=== PATIENT | female | born 1940 | race American Indian/Alaskan Native ===

== ENCOUNTER 2017-07-06 08:55 | Day surgery (SDC) | payer MEDICARE ==
[2017-06-28 14:10] VITALS: BMI 34.0
[2017-07-06] MEDS ORDERED: Sodium Chloride 0.9% 1,000 ML IV SCH (09:30)
[2017-07-06] MEDS ORDERED: Propofol 10 mg/ml Inj (20 ML) ONE (10:17)
[2017-07-06 12:15] VITALS: O2SAT 98
[2017-07-06 13:59] VITALS: BP 128/71; PULSE 66; RESP 19; TEMP 98.4
== END 2017-07-06 13:19 | disposition home or self-care (01) ==
LOC: ENDO 08:55
PROVIDERS: ATTEND Internal Medicine Gastroenterology
DX: Z12.11 Encounter for screening for malignant neoplasm of colon (principal); K63.5 Polyp of colon; K57.30 Diverticulosis of large intestine without perforation or abscess without bleeding; K64.8 Other hemorrhoids; I10 Essential (primary) hypertension; E11.9 Type 2 diabetes mellitus without complications; Z80.9 Family history of malignant neoplasm, unspecified; Z79.84 Long term (current) use of oral hypoglycemic drugs
CPT/HCPCS: 45381; 45385; 82948; 88305; J2001; J2704; J7040 ×2

== ENCOUNTER 2018-10-12 09:08 | Inpatient (IN) | payer MEDICARE ==
[2018-10-12 09:09] VITALS: BMI 34.0
--- NOTE | 2018-10-12 09:59 | ED PDOC ---
Arrival/HPI - General Chief Complaint: Abdominal Pain Time Seen by Provider: 10/12/18 09:49 Historian: Patient - History of Present Illness Narrative History of Present Illness (Text): 10/12/18 09:55 A 78 year old female, whose past medical history includes hypertension and diabetes, presents to the emergency department complaining of right flank pain since 2 days ago. Patient describes pain as mild pain. Patient denies any fever, chills, shortness of breath, nausea, vomiting, change in urinary frequency, or any other complaints. Time/Duration: Other (2 days) Symptom Onset: Gradual Symptom Course: Unchanged Activities at Onset: Light Context: Home Past Medical History - Provider Review Nursing Documentation Reviewed: Yes - Cardiac Hx Hypertension: Yes Hx Pacemaker: No - Neurological Hx Paralysis: No - Endocrine/Metabolic Hx Diabetes Mellitus Type 2: Yes - Hematological/Oncological Hx Blood Transfusions: Yes (MANY YRS AGO) - Musculoskeletal/Rheumatological Hx Falls: No - Psychiatric Hx Emotional Abuse: No Hx Physical Abuse: No Hx Substance Use: No - Anesthesia Hx Anesthesia Reactions: No - Suicidal Assessment Feels Threatened In Home Enviroment: No Family/Social History - Physician Review Nursing Documentation Reviewed: Yes Family/Social History: No Known Family HX Smoking Status: Never Smoked Hx Alcohol Use: No Hx Substance Use: No Hx Substance Use Treatment: No Allergies/Home Meds Allergies/Adverse Reactions: Allergies Penicillins Allergy (Verified 10/12/18 09:20) RASH Home Medications: Home Meds Medication Instructions Recorded Confirmed Enalapril Maleate [Vasotec] 10 mg PO DAILY 06/29/17 10/12/18 Glipizide [Glipizide ER] 2.5 mg PO DAILY 06/29/17 10/12/18 hydroCHLOROthiazide [Hydrodiuril] 25 mg PO DAILY 06/29/17 10/12/18 Review of Systems - Physician Review All systems were reviewed & negative as marked: Yes - Review of Systems Constitutional: absent: Fevers Respiratory: absent: SOB Physical Exam - Physical Exam Narrative Physical Exam (Text): 10/12/18 09:59 Constitutional: No acute distress. Head: Normocephalic. Atraumatic. Eyes: PERRL. ENT: Moist mucous membranes. Neck: Supple. Cardiovascular: Regular rate. Chest: No tenderness. Respiratory: Clear to auscultation bilaterally. GI: Soft. Nontender. Nondistended. Back: Focal area of tenderness to right flank. Musculoskeletal: No tenderness or swelling of extremities. Skin: No rash. Neurologic: Alert, no focal deficit. Vital Signs Reviewed: Yes Vital Signs Temp Pulse Resp BP Pulse Ox 10/12/18 09:18 98.5 F 94 H 18 126/74 97 Temperature: Afebrile Blood Pressure: Normal Pulse: Regular Respiratory Rate: Normal Appearance: Positive for: Well-Appearing, Non-Toxic Medical Decision Making ED Course and Treatment: 10/12/18 09:57 Impression: 78 year old female with right flank pain. Plan: -- CT of abdomen and pelvis -- Labs -- CBC -- Urine culture -- Urinalysis -- Reassess and disposition Prior Visits: Notes and results from previous visits were reviewed. Progress Notes: 10/12/18 12:54 Procedure: CT of Abdomen and Pelvis without contrast Impression: Enlarged mesenteric, periportal/nathan hepatis, adenopathy measuring up to 2 cm in short axis. Indeterminate 1.7 cm heterogeneous left adrenal gland mass. Recommend dedicated cross-sectional imaging for further characterization. 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 Correlate clinically. 2.1 x 3.0 cm ovoid soft tissue in the left upper quadrant favored to represent large splenule, however not clearly distinct from the pancreatic tail. Recommend comparison with prior outside imaging if available. Otherwise, this may be further assessed on dedicated cross-sectional imaging if indicated. Small pelvic free fluid. Cholecystectomy. Hysterectomy. Findings discussed with Dr. Pyle on 10/12/18 at 12:43 p.m Dictator: Carly Tao MD Patient continues to have pain and has periportal hepatis. Dr. Weller accepts patient to her service, recommends Dr. Loja for consultation. - Scribe Statement The provider has reviewed the documentation as recorded by the Mallory Charles All medical record entries made by the Scribe were at my direction and personally dictated by me. I have reviewed the chart and agree that the record accurately reflects my personal performance of the history, physical exam, medical decision making, and the department course for this patient. I have also personally directed, reviewed, and agree with the discharge instructions and disposition. Disposition/Present on Arrival - Present on Arrival Any Indicators Present on Arrival: No History of DVT/PE: No History of Uncontrolled Diabetes: No Urinary Catheter: No History of Decub. Ulcer: No History Surgical Site Infection Following: None - Disposition Have Diagnosis and Disposition been Completed?: Yes Diagnosis: Abdominal pain Disposition: HOSPITALIZED Disposition Time: 12:59 Patient Plan: Admission Condition: GUARDED
[2018-10-12 10:34] LABS: BASO # 0.05 K/mm3 (0.0-2.0); BASO % 0.8 % (0.0-3.0); EOS # 0.5 (0.0-0.7); EOS % 7.7 % (1.5-5.0); GRAN # 2.66 (1.4-6.5); GRAN % 43.8 % (50.0-68.0); HEMOGLOBIN 12.3 g/dL (12.0-16.0); LYMPH # 2.3 (1.2-3.4); LYMPH % 38.5 % (22.0-35.0); MEAN CELL VOLUME 91.3 fl (80.0-105.0); MEAN CORPUSCULAR HEMOGLOBIN 29.8 pg (25.0-35.0); MEAN CORPUSCULAR HGB CONC 32.6 g/dl (31.0-37.0); MEAN PLATELET VOLUME 8.6 fl (7.0-11.0); MONO # 0.6 (0.1-0.6); MONO % 9.2 % (1.0-6.0); RBC 4.13 10^6/uL (3.5-6.1); RED CELL DISTRIBUTION WIDTH 13.6 % (11.5-14.5); WHITE BLOOD COUNT 6.1 10^3/uL (4.5-11.0)
[2018-10-12 10:44] LABS: BLOOD UREA NITROGEN 25 mg/dL (7-21); CALCIUM 9.8 mg/dL (8.4-10.5); GFR NON-AFRICAN AMERICAN > 60; LIPASE 103 U/L (23-300)
[2018-10-12 10:58] LABS: ALT/SGPT 32 U/L (7-56); AST/SGOT 42 U/L (14-36)
[2018-10-12 12:09] LABS: URINE BILIRUBIN NEGATIVE (NEGATIVE); URINE BLOOD NEGATIVE (NEGATIVE); URINE GLUCOSE (UA) NEGATIVE (NEGATIVE); URINE LEUKOCYTE ESTERASE NEGATIVE Leu/uL (NEGATIVE); URINE PROTEIN TRACE mg/dL (<30 mg/dL); URINE UROBILINOGEN 0.2 E.U./dL (<1 E.U./dL)
[2018-10-12 12:30] LABS: URINE APPEARANCE CLEAR (CLEAR); URINE COLOR YELLOW (YELLOW)
[2018-10-12 12:38] LABS: URINE BACTERIA MOD (NEG); URINE RBC 0 - 2 /hpf (0-2); URINE WBC 0 - 2 /hpf (0-6)
--- NOTE | 2018-10-12 12:52 | CT ---
Date of service: 10/12/2018 PROCEDURE: CT Abdomen and Pelvis with contrast HISTORY: R flank pain, h/o roman COMPARISON: Abdominal ultrasound performed 12/18/17 TECHNIQUE: Contrast dose: 150 mL Omnipaque 350 Radiation dose: Total exam DLP = 1153.41 mGy-cm. This CT exam was performed using one or more of the following dose reduction techniques: Automated exposure control, adjustment of the mA and/or kV according to patient size, and/or use of iterative reconstruction technique. FINDINGS: LOWER THORAX: Mild bibasilar atelectasis. No visible pleural effusion or pneumothorax. LIVER: Unremarkable. GALLBLADDER AND BILE DUCTS: Cholecystectomy. PANCREAS: Unremarkable. SPLEEN: 2.1 x 3.0 cm ovoid soft tissue in the left upper quadrant favored to represent large splenule, however not clearly distinct from the pancreatic tail. ADRENALS: 1.7 cm heterogeneous indeterminate left adrenal gland mass. The right adrenal gland appears unremarkable. KIDNEYS AND URETERS: The kidneys enhance symmetrically. No hydronephrosis or obstructing calculus identified. VASCULATURE: No aortic aneurysm. Atherosclerotic calcification / mural plaque present. BOWEL: Stomach is nondistended. Lack of oral contrast limits evaluation for bowel pathology. Bowel loops appear within normal limits of caliber without evidence of obstruction. APPENDIX: The appendix appears within normal limits of caliber. No secondary signs of acute appendicitis. PERITONEUM: Nodular soft tissue consistent with omental metastases. Small pelvic free fluid. No definite free air. LYMPH NODES: Enlarged mesenteric, periportal/nathan hepatis, adenopathy measuring up to 2 cm in short axis. BLADDER: Under distention of the urinary bladder precludes adequate evaluation. REPRODUCTIVE: The uterus is absent consistent with hysterectomy. BONES: Osseous demineralization. Degenerative changes. OTHER FINDINGS: None. IMPRESSION: Enlarged mesenteric, periportal/nathan hepatis, adenopathy measuring up to 2 cm in short axis. Indeterminate 1.7 cm heterogeneous left adrenal gland mass. Recommend dedicated cross-sectional imaging for further characterization. 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 Correlate clinically. 2.1 x 3.0 cm ovoid soft tissue in the left upper quadrant favored to represent large splenule, however not clearly distinct from the pancreatic tail. Recommend comparison with prior outside imaging if available. Otherwise, this may be further assessed on dedicated cross-sectional imaging if indicated. Small pelvic free fluid. Cholecystectomy. Hysterectomy. Additional findings as above. Findings discussed with Dr. Pyle on 10/12/18 at 12:43 p.m..
--- NOTE | 2018-10-13 18:44 | PN ---
DATE: 10/13/2018 SUBJECTIVE: This 78-year-old female was examined at her bedside in the presence of her family. The patient remains alert and oriented with poor appetite according to her nurse, David Tay, registered nurse. The patient is awaiting hematological evaluation by Dr. Eusebio Loja. PHYSICAL EXAMINATION: VITAL SIGNS: Temperature is 97.8, respirations 18, pulse 67 and blood pressure 121/58. Pulse ox 96% on room air. Physical exam is unchanged. LABORATORY DATA: Random blood sugar is 156. CEA is 3.2 with normal being 3 and less. CA-125 antigen is 91.6 with normal being 0.35 or less. IMPRESSION: An 78-year-old female with obesity, noninsulin-dependent diabetes mellitus and hypertension. Admitted with flank pain and CAT scan showing omental masses of unclear etiology. On further questioning of this patient, she denied being status post hysterectomy and I will order a pelvic ultrasound while awaiting consultation with Dr. Eusebio Loja from Hematology/Oncology. As discussed with the patient and family, she may need a tissue biopsy by Dr. Jamal Hay with CT guidance for further tissue diagnosis of the above findings. All of the above was discussed in the presence of nurse, Jasvir. All questions were answered. Nesha Weller MD MTDD
--- NOTE | 2018-10-13 19:27 | HP ---
DATE OF EXAM: 10/12/2018 HISTORY OF PRESENT ILLNESS: This 78-year-old female who was examined in the [facility] ER on the afternoon of 10/12/2018. This case was reviewed in detail with emergency room physician, Gonzalo Pyle, medical doctor. The patient presented to the ER earlier this morning complaining of right flank pain for the previous 2 days. She described it as an achy pain in her right flank area unassociated with fever, chills, shortness of breath, nausea, vomiting, dysuria or diarrhea. While in the emergency room, the patient underwent an abdominal pelvic CT that was reviewed. It showed enlarged mesenteric periportal hepatic adenopathy as well as an indeterminate heterogeneous left adrenal mass. She was noted to have nodular soft tissue densities consistent with omental metastases and a 2 x 3 cm soft tissue mass was noted in her left upper quadrant favor to represent a large splenule; however, it was not clearly distinct from the pancreatic tail. She was noted to have small pelvic free fluid, status post cholecystectomy and when I questioned the patient, she denied being status post hysterectomy though it is listed in her report. The patient is being admitted for further evaluation of the above. PAST MEDICAL HISTORY: Obesity, degenerative arthritis, knee replacement surgery, hypertension, and type 2 diabetes mellitus. MEDICATIONS: The patient's outpatient medications include Glucotrol, HydroDIURIL, Tylenol, and Zestril. REVIEW OF SYSTEMS: CONSTITUTIONAL: No fever or chills. No reports of weight loss. HEAD: No headache. EYES: No change in visual acuity. EARS: No hearing loss. THROAT: With no swallowing difficulty. NECK: No stiffness. CARDIAC: No chest pain. PULMONARY: No cough. GASTROINTESTINAL: No nausea, vomiting, diarrhea, hematemesis, or melena. GENITOURINARY: No dysuria. SKIN: No rash. VASCULAR: No claudication. PSYCHOLOGICAL: Alert. No change in mental status. NEUROLOGIC: No knowledge of stroke. FAMILY HISTORY: Noncontributory. SOCIAL HISTORY: She is a nondrinker, nonsmoker, and non IV drug misuser. ALLERGIES: SHE HAS ALLERGY TO PENICILLIN. PHYSICAL EXAMINATION: VITAL SIGNS: Temperature 98.5, respirations 16, pulse 70, blood pressure 136/76, and pulse ox 94% room air. HEENT: Head; normocephalic and atraumatic. Eyes; no icterus. Ears; clear. Throat; noninjected. NECK: Supple. HEART: Regular S1 and S2. LUNGS: Clear. ABDOMEN: Soft. No palpable organomegaly. No rebound. No guarding. No tenderness. EXTREMITIES: No edema. SKIN: Without rash. NEUROLOGIC: Intact. PSYCHOLOGICAL: Alert. VASCULAR: Legs were warm to touch. LABORATORY DATA: Her labs were reviewed. White count 6100, hemoglobin 12.3, hematocrit 37.7, and platelets 256,000. Sodium 136, K 4.8, chloride 103, bicarb 27, BUN 25, creatinine 0.9, random blood sugar 159, and calcium 9.8. Bilirubin 0.7, AST 42, ALT 32, alk phos 88, and lipase 103. Urinalysis showed moderate bacteria and urine culture was sent. IMPRESSION: An 78-year-old female with an abnormal CT as described above and comorbidities of obesity and [id number]-[id number] diabetes mellitus, hypertension, and degenerative arthritis. PLAN: Admit this patient. She will be started on a heart-healthy diet. I have placed a consultation with Dr. Eusebio Loja from Hematology/Oncology regarding her omental lesions, abnormal CT findings and regarding workup of the above. All of this was discussed with the patient and her family at bedside. All questions were answered. Nesha Weller MD MTD
[2018-10-14] MEDS: Multivitamin With Minerals Tab PO SCH (08:14)
[2018-10-14] MEDS: GlipiZIDE 2.5 mg SR Tab PO SCH (08:21)
[2018-10-14 12:46] LABS: HEMOGLOBIN 12.2 g/dL (12.0-16.0); MEAN CELL VOLUME 90.5 fl (80.0-105.0); MEAN CORPUSCULAR HEMOGLOBIN 29.6 pg (25.0-35.0); MEAN CORPUSCULAR HGB CONC 32.7 g/dl (31.0-37.0); MEAN PLATELET VOLUME 8.3 fl (7.0-11.0); RBC 4.12 10^6/uL (3.5-6.1); RED CELL DISTRIBUTION WIDTH 13.5 % (11.5-14.5); WHITE BLOOD COUNT 6.8 10^3/uL (4.5-11.0)
[2018-10-14 12:55] LABS: BLOOD UREA NITROGEN 26 mg/dL (7-21); CALCIUM 9.7 mg/dL (8.4-10.5); GFR NON-AFRICAN AMERICAN > 60
[2018-10-14 12:57] LABS: INR 1.07; PARTIAL THROMBOPLASTIN TIME 31.3 Seconds (25.1-36.5); PROTHROMBIN TIME 12.3 SECONDS (9.4-12.5)
--- NOTE | 2018-10-14 13:12 | US ---
Date of service: 10/14/2018 PROCEDURE: HISTORY: elevated ca 125 COMPARISON: TECHNIQUE: FINDINGS: Uterus and ovaries not identified; correlate clinically for previous surgery. No evidence of pelvic mass or free fluid. IMPRESSION:
--- NOTE | 2018-10-14 18:58 | PN ---
DATE: 10/14/2018 SUBJECTIVE: This 78-year-old female was examined at her bedside and her case was reviewed in detail with nurse, Radha Mae, Registered Nurse. The patient is in the process of drinking fluids for pelvic ultrasound. The nurse reports that the patient was having difficulty drinking enough fluids to fill her bladder earlier this morning. As discussed with nurse, Carmelita, if the patient is unable to adequately drink, I recommend the placement of a temporary Lundberg and the instillation of sterile water. The patient is awaiting consultation by Dr. Eusebio Loja from Hematology/Oncology for admitting findings of omental masses of unclear etiology on CAT scan of abdomen and pelvis. At present, the patient admits to poor appetite, but has no fever or chills. PHYSICAL EXAMINATION: VITAL SIGNS: Revealed temperature 98, respirations 18, pulse 70, and blood pressure 140/70, with a pulse ox of 99% on room air. HEENT: Head: Normocephalic, atraumatic. Eyes: No icterus. Ears: Clear. Throat: Noninjected. NECK: Supple. HEART: S1, S2. LUNGS: Clear. ABDOMEN: Soft. EXTREMITIES: No edema. SKIN: Without rash. NEUROLOGICAL: Intact. PSYCHOLOGICAL: Alert. VASCULAR: Legs warm to touch. LABORATORY DATA: White count 6800, hemoglobin 12.2, hematocrit 37.3, platelets 242,000. PT/INR 1.07, PTT 31.3. Sodium 134, K 4.8, chloride 98, bicarb 27, BUN 26, creatinine 0.8, random blood sugar 126. CA-125 antigen level elevated at 91.6, CEA 3.2. Urinalysis was remarkable for moderate bacteria. Urine culture showed no growth. IMPRESSION: An 78-year-old female admitted with flank pain and CT of the abdomen findings of omental mass and questionable adrenal mass of unclear etiology with comorbidities of obesity, type 2 diabetes mellitus, hypertension, and degenerative arthritis. She is status post bilateral knee replacement surgery. PLAN: The plan at present is to continue glipizide, hydrochlorothiazide, multivitamin, Zestril, and p.r.n. Tylenol. She continues on a heart-healthy diabetic diet. She is awaiting a pelvic ultrasound. Consultation with Dr. Eusebio Loja has been requested and remains pending at the present time. Based on the above workup results, additional diagnostic testing will be entertained. It was discussed with the patient that she may need CT-guided biopsy of omental mass for tissue diagnosis. This will be further discussed with Dr. Eusebio Loja from Hematology/Oncology. Nesha Weller MD
--- NOTE | 2018-10-15 07:37 | PN ---
PROCEDURE DATE: ONCOLOGY EVALUATION This is an 78-year-old woman with diffuse abdominal pain. The CAT scan shows omental metastasis, unclear primary. The CAT scan also shows splenic nodule; this is most likely benign, but the omental lesions are probably causing the pain. I have asked for PT and PTT. We will call Dr. Jamal Hay for CAT scan-guided biopsy of the lesions in order to see to determine the nature of the cancer. The CA-125 is elevated to 90. The CEA is 3.2. This is most likely ovarian carcinoma; however, primary peritoneal cancer, colon cancer, pancreas cancer can all present this way. So, we are trying to speak to Dr. Jamal Hay. Eusebio Loja MD
[2018-10-15] MEDS: Multivitamin With Minerals Tab PO SCH (08:54)
[2018-10-15] MEDS: GlipiZIDE 2.5 mg SR Tab PO SCH (08:54)
--- NOTE | 2018-10-15 16:37 | PN ---
DATE: 10/15/2018 SUBJECTIVE: This 78-year-old female was examined at bedside in the presence of her son, Corey, and this case was reviewed in detail with Leigh Ann Roth, registered nurse. The patient was seen earlier by Dr. Eusebio Loja from Hematology/Oncology. As discussed with the patient, she is status post hysterectomy, according to pelvic ultrasound, which revealed no evidence of uterus, nor ovaries. The patient has an elevated CA-125 level in the presence of omental masses which could be consistent with metastatic ovarian cancer versus colon cancer versus pancreatic cancer versus primary peritoneal carcinomatosis. The patient has been seen in consultation by Dr. Jamal Hay from Interventional Radiology and will be readied for a CT-guided omental mass biopsy. PHYSICAL EXAMINATION: VITAL SIGNS: Temperature is 98.3, respirations 18, pulse 64, blood pressure 121/61, and pulse ox 96% on room air. HEENT: Head; normocephalic, atraumatic. Eyes, no icterus. Ears, clear. Throat, noninjected. NECK: Supple. HEART: Regular S1, S2. LUNGS: Clear. ABDOMEN: Soft. EXTREMITIES: No edema. SKIN: Without rash. NEUROLOGICAL: Intact. PSYCHOLOGICAL: Alert. VASCULAR: Legs warm to touch. LABORATORY DATA: White count 6800, hemoglobin 12.2, hematocrit 37.3, platelets 242,000. Sodium 134, K 4.8, chloride 98, bicarb 27, BUN 26, creatinine 0.8, random blood sugar 126, calcium 9.7. CEA 3.2. CA-125 of 91.6. IMPRESSION AND PLAN: An 78-year-old female with omental masses, rule out primary peritoneal carcinomatosis versus metastatic cancer to the peritoneum including ovarian, colon, or pancreatic. Also, with comorbidities of dqu-rsdwntx-hpxrdwann diabetes mellitus, obesity, hypertension, and degenerative arthritis. The patient will continue on Glucotrol, HydroDIURIL, multivitamin, Tylenol, and Zestril. I will order Colace as requested by the patient for mild obstipation. She is being readied for CT-guided omental biopsy and continues on a heart-healthy diet and based on the results of the above, additional diagnostic workup and testing will be entertained. Greater than 35 minutes were spent in the care management, review of labs, orders, x-rays, and discussion of this patient's case with herself and her son, Corey, at the bedside. All questions were answered. Nesha Weller MD
--- NOTE | 2018-10-15 19:16 | CON ---
DATE: 10/15/2018 HISTORY OF PRESENT ILLNESS: This is an 78-year-old with abdominal pains. The patient says she was feeling fine. She lives alone, but she has a son and daughter nearby and visit with her at [place]. She is admitted for abdominal pain, which she says has only been for about a week but she has had increasing constipation for the last few weeks. She said she had a colonoscopy about one year ago and that was okay other than a polyp. PHYSICAL EXAMINATION: SKIN: No lesion. HEENT: Anicteric. No temporal wasting noted. NODES: Nonpalpable in the axillary, cervical, supraclavicular, and inguinal regions. LUNGS: Clear at present. No vertebral tenderness. HEART: S1 and S2. BREASTS: No mass, discharge, or dimpling. LUNGS: Clear. ABDOMEN: Shows an obese woman. No liver, no spleen. No omental caking. Some mild tenderness but no rebound. No ascites. EXTREMITIES: No edema. SUPERVISOR DUMPING: No focal finding. LABORATORY DATA: The CAT scan shows diffuse peritoneal lesions. ASSESSMENT AND PLAN: I told her that we worry about a cancer and cancer and I told her that the tumors are on the nodules along the wall and then I have asked Dr. Jamal Hay to do a CAT scan-guided biopsy. I am hoping that will be done today and I was trying to give him a call again today and see what he can do with. The CA level is elevated and the CA-125 is elevated as well and we suspect that this is an ovarian carcinoma. The CA-125 is 91 and CA level is 3.2. So, at this point, we think it is an ovarian carcinoma. I am going to do a biopsy and then if that is positive, we will consider giving chemotherapy as an outpatient. So, at this point, after the biopsy she will be able to be discharged because it will take about a week to get the reports back. Eusebio Loja MD
[2018-10-15] MEDS ORDERED: Barium Sulfate Susp 2.1% w/v, 2.0% w/w 450 mL Bottle PO ONE (20:39)
[2018-10-16] MEDS ORDERED: Barium Sulfate Susp 2.1% w/v, 2.0% w/w 450 mL Bottle PO ONE (06:48)
[2018-10-16] MEDS: Multivitamin With Minerals Tab PO SCH (08:52)
[2018-10-16] MEDS: GlipiZIDE 2.5 mg SR Tab PO SCH (08:52)
[2018-10-16] MEDS ORDERED: Midazolam 2 MG/2 ML VIAL ONE (11:28)
[2018-10-16] MEDS ORDERED: Lidocaine 1% Inj (20ml) ONE (11:28)
[2018-10-16] MEDS ORDERED: Midazolam 2 MG/2 ML VIAL IVP ONE (12:15)
[2018-10-16] MEDS ORDERED: Sodium Chloride 0.45% 1,000 ML IV SCH (12:30)
--- NOTE | 2018-10-16 13:00 | PN ---
DATE: 10/16/2018 SUBJECTIVE: This 78-year-old female is awaiting CT-guided biopsy of omental mass. She denies any fever, chills, chest pain or shortness of breath. PHYSICAL EXAMINATION: VITAL SIGNS: On physical exam, temperature was 98, respirations 20, pulse 77 and blood pressure 145/61 with a pulse ox of 96% on room air. HEAD: Normocephalic, atraumatic. Eyes, no icterus. Ears, clear. Throat noninjected. NECK: Supple. HEART: S1, S2. LUNGS: Clear. ABDOMEN: Obese. EXTREMITIES: No edema. SKIN: Without rash. NEUROLOGICAL: Intact. PSYCHOLOGICAL: Alert. VASCULAR: Legs warm to touch. LABORATORY DATA: White count 6800, hemoglobin 12.2, hematocrit 37.3, platelets 242,000. PT/INR 1.07, PTT 31.3. Sodium 134, K 4.8, chloride 98, bicarb 27, BUN 26, creatinine 0.8, random blood sugar 126, calcium 9.7. CA-125 antigen elevated at 91.6. CEA 3.2. Urinalysis showed moderate bacteria. Urine culture with no growth. IMPRESSION: An 78-year-old female admitted with asymptomatic omental masses, rule out peritoneal carcinomatosis, metastatic ovarian cancer, pancreatic cancer, colon cancer, also with comorbidities of obesity, hyperlipidemia, noninsulin-dependent diabetes mellitus and chronic hypertension. The patient will continue on Colace, Glucotrol, hydrochlorothiazide, multivitamin, Tylenol and Zestril. She is scheduled for a CT-guided biopsy of her omental mass with Dr. Jamal Hay and based on results of the above, additional diagnostic workup will be entertained. All of the above was discussed with the patient and nursing. All questions were answered. Nesha Weller MD
--- NOTE | 2018-10-16 18:38 | CT ---
PROCEDURE: CT guided omental biopsy. HISTORY: Subtle nodular omental changes suggestive of carcinomatosis. Evaluate for malignancy PHYSICIAN(S): Jamal Hay MD. TECHNIQUE: The relative risks and indications of the procedure were explained to the patient and consent obtained. The patient was placed supine on the CT scanner and preliminary images through the lower abdomen obtained. Conscious sedation and monitoring were provided throughout the procedure by a nurse. There is subtle nodular changes in the omentum anterior to the cecum.. A anterior oblique approach was selected and the area prepped and draped in the usual sterile fashion. 1% Xylocaine was used to anesthetize the skin and soft tissues. A 17-gauge guiding needle was advanced into the nodule omental changes in the right lower quadrant. Its position was confirmed with CT. Using coaxial technique, multiple core biopsies were obtained. The postprocedure images show no evidence of significant hemorrhage. IMPRESSION: 1. CT-guided omental biopsy as described above.
[2018-10-17 07:18] LABS: HEMOGLOBIN 10.9 g/dL (12.0-16.0); MEAN CELL VOLUME 90.6 fl (80.0-105.0); MEAN CORPUSCULAR HEMOGLOBIN 29.2 pg (25.0-35.0); MEAN CORPUSCULAR HGB CONC 32.2 g/dl (31.0-37.0); MEAN PLATELET VOLUME 8.6 fl (7.0-11.0); RBC 3.73 10^6/uL (3.5-6.1); RED CELL DISTRIBUTION WIDTH 13.8 % (11.5-14.5); WHITE BLOOD COUNT 7.2 10^3/uL (4.5-11.0)
[2018-10-17] MEDS: GlipiZIDE 2.5 mg SR Tab PO SCH (08:00)
[2018-10-17] MEDS: Multivitamin With Minerals Tab PO SCH (09:00)
[2018-10-17 14:29] VITALS: BP 115/73; PULSE 95; RESP 20; TEMP 97.9; O2SAT 96
--- NOTE | 2018-10-17 18:41 | OP ---
PROCEDURE DATE: 10/17/2018 This is an 78-year-old woman with radiologic diagnosis of ovarian carcinoma. We are waiting for the final pathology. The patient just had a biopsy done yesterday. We will not get reports back until next week and so that time that will direct what type of treatment we will give her which is most likely chemotherapy. At this point any treatment will be given as an outpatient and so discharge will depend on the general medical condition and the other consultants involved. I will try to get hold of her next week once we have the pathology report. Eusebio MD Purvi
--- NOTE | 2018-10-17 20:04 | DS ---
FINAL DIAGNOSES: Newly noted omental mass status post biopsy with preliminary pathology report showing adenocarcinoma, currently of unclear etiology; comorbidities including chronic hypertension, obesity, hyperlipidemia, degenerative arthritis. DISPOSITION: Home. FOLLOWUP: In my office, 10/23/2018 for results of official pathology report and immunostaining for determination of etiology of peritoneal carcinomatosis and then follow up with Dr. Eusebio Loja from Oncology and Hematology. DISCHARGE DIET: A 2 g sodium, heart healthy. DISCHARGE MEDICINES: Hydrochlorothiazide 25 mg p.o. daily, Glucotrol 2.5 mg p.o. daily, Vasotec 10 mg p.o. daily and Lipitor 10 mg p.o. at bedtime. SUMMARY: This 78-year-old female presented to [facility] with right flank pain and had an abdominopelvic CT that showed peritoneal carcinomatosis newly noted. The patient underwent diagnostic workup including CEA which was borderline normal and CA-125 that was elevated at a level of 91.6, normal being 35 or less and CEA was 3.2 with normal being 3 or less. The patient had a pelvic ultrasound that showed probable previous hysterectomy with no evidence of uterus or ovaries at present. The patient underwent a CT-guided omental mass biopsy under the direction of Dr. Jamal Hay and I did discuss preliminary pathology results with Dr. Beth from Pathology which is showing adenocarcinoma, etiology to be determined. At the time of discharge, temperature was 97.9, respirations 20, pulse 95 and blood pressure 115/73 with pulse ox 96% on room air. Sodium 134, K 4.8, chloride 98, bicarb 27, BUN 26, creatinine 0.8, random blood sugar 126, calcium 9.7. White count 7200, hemoglobin 10.9, hematocrit 33.8, platelets 236,000. The patient is discharged to home and will be monitored in my office as an outpatient with followup with Dr. Eusebio Loja as well. Instructions were given to this patient and reviewed with her nurse, Yvonne Wakefield, registered nurse. All questions were answered. Nesha Weller MD MTDM[facility]
== END 2018-10-17 16:26 | disposition home or self-care (01) | DRG 375 ==
LOC: ED 09:08 → ERH 13:02 → 5RSO 16:40
PROVIDERS: ADMIT Internal Medicine; ATTEND Internal Medicine
PROC: 0DBU3ZX Excision of Omentum, Percutaneous Approach, Diagnostic (ICD-10-PCS; principal; 2018-10-16 11:00)
DX: C78.6 Secondary malignant neoplasm of retroperitoneum and peritoneum (principal); C56.9 Malignant neoplasm of unspecified ovary; E27.9 Disorder of adrenal gland, unspecified; I10 Essential (primary) hypertension; E11.9 Type 2 diabetes mellitus without complications; R59.0 Localized enlarged lymph nodes; K59.00 Constipation, unspecified; E66.9 Obesity, unspecified; Z68.35 Body mass index [BMI] 35.0-35.9, adult; Z79.84 Long term (current) use of oral hypoglycemic drugs; Z96.653 Presence of artificial knee joint, bilateral

== ENCOUNTER 2018-10-30 11:14 | Day surgery (SDC) | payer MEDICARE ==
[2018-10-29 07:52] VITALS: BMI 34.1
[2018-10-30 12:26] LABS: BASO # 0.08 K/mm3 (0.0-2.0); BASO % 1.2 % (0.0-3.0); EOS # 0.5 (0.0-0.7); EOS % 7.4 % (1.5-5.0); GRAN # 2.29 (1.4-6.5); GRAN % 35.1 % (50.0-68.0); HEMOGLOBIN 12.1 g/dL (12.0-16.0); LYMPH # 2.9 (1.2-3.4); LYMPH % 44.3 % (22.0-35.0); MEAN CELL VOLUME 91.3 fl (80.0-105.0); MEAN CORPUSCULAR HEMOGLOBIN 30.3 pg (25.0-35.0); MEAN CORPUSCULAR HGB CONC 33.2 g/dl (31.0-37.0); MEAN PLATELET VOLUME 8.5 fl (7.0-11.0); MONO # 0.8 (0.1-0.6); RED CELL DISTRIBUTION WIDTH 13.5 % (11.5-14.5); WHITE BLOOD COUNT 6.5 10^3/uL (4.5-11.0)
[2018-10-30 12:33] LABS: INR 1.09; PARTIAL THROMBOPLASTIN TIME 25.8 Seconds (25.1-36.5); PROTHROMBIN TIME 12.5 SECONDS (9.4-12.5)
[2018-10-30 12:57] LABS: BLOOD UREA NITROGEN 19 mg/dL (7-21); CALCIUM 9.7 mg/dL (8.4-10.5); GFR NON-AFRICAN AMERICAN > 60
[2018-10-30] MEDS ORDERED: Lidocaine 2% Inj (20ml) ONE (13:48)
[2018-10-30] MEDS ORDERED: Vancomycin 500 mg (Oral/Rectal USE) ONE (13:55)
[2018-10-30] MEDS ORDERED: Midazolam 2 MG/2 ML VIAL ONE ×2 (14:13→14:24)
[2018-10-30] MEDS ORDERED: Oxycodone/Acetaminophen 5/325 mg Tab PO PRN (14:58)
[2018-10-30] MEDS ORDERED: Sodium Chloride 0.45% 1,000 ML IV SCH (15:00)
[2018-10-30 15:51] VITALS: RESP 16; TEMP 97.8
[2018-10-30 16:16] VITALS: BP 138/68; PULSE 77; O2SAT 98
--- NOTE | 2018-10-30 17:58 | VASCULAR ---
PROCEDURE: Ultrasound and fluoroscopic right internal jugular venous access port. CLINICAL HISTORY: Ovarian CA with carcinomatosis.Venous port for chemotherapy. PHYSICIAN(S): Jamal Hay M.D. TECHNIQUE: The relative risks and indications of the procedure were explained to the patient and consent obtained. The patient was placed supine on the arteriogram table and the right neck and chest prepped and draped in the usual sterile fashion. Conscious sedation monitoring was provided throughout the procedure by a nurse. Antibiotics were given prior to the procedure. Under direct ultrasound guidance, the right internal jugular vein was punctured with a micro-puncture set. A 0.035 angled Glidewire was advanced into the IVC. A 4 cm incision was made below the right clavicle and the pocket blunted dissected. A 8 Tunisian single-lumen catheter, 23 cm long, was advanced to the SVC/RA junction. The catheter was trimmed and attached to the port. The port aspirates and injects easily. The port was placed in the pocket and closed in 2 layers. The patient tolerated the procedure well. IMPRESSION: Ultrasound and fluoroscopically placed right internal jugular venous access port.
== END 2018-10-30 17:00 | disposition home or self-care (01) ==
LOC: SDS 11:14
PROVIDERS: ATTEND Radiology Vascular & Interventional Radiology
DX: C56.9 Malignant neoplasm of unspecified ovary (principal)
CPT/HCPCS: 36415; 36561; 76937; 77001; 80048; 85025; 85610; 85730; 99152; 99153; C1769; C1788; J1644; J2250; J2405; J3010; J7030

== ENCOUNTER 2018-11-24 14:01 | Emergency (ER) | payer MEDICARE ==
[2018-11-24 14:02] VITALS: BMI 34.1
[2018-11-24 14:13] VITALS: BP 99/68; PULSE 95; RESP 18; TEMP 98.5; O2SAT 98
--- NOTE | 2018-11-24 14:29 | ED PDOC ---
Arrival/HPI - General Chief Complaint: Abnormal Skin Integrity Time Seen by Provider: 11/24/18 14:11 Historian: Patient, Family (daughter) - History of Present Illness Time/Duration: Other (2 days) Symptom Onset: Sudden Symptom Course: Unchanged Severity Level: Mild Associated Symptoms (Text): 11/24/18 14:27 Patient had a right sided Port-A-Cath placed October 30. She noticed that 2 days ago the wound seemed to be opening up. There is no discharge. No erythema. No pain. No signs of infection. No fever or chills. Past Medical History - Cardiac Hx Hypertension: Yes Hx Pacemaker: No - Neurological Hx Paralysis: No - Endocrine/Metabolic Hx Endocrine Disorders: Yes Hx Diabetes Mellitus Type 2: Yes - Hematological/Oncological Hx Blood Transfusion Reaction: No - Musculoskeletal/Rheumatological Hx Musculoskeletal Disorders: Yes - Psychiatric Hx Emotional Abuse: No Hx Physical Abuse: No Hx Substance Use: No - Surgical History Other/Comment: port-a-cath insertion, - Anesthesia Hx Anesthesia Reactions: No - Suicidal Assessment Feels Threatened In Home Enviroment: No Family/Social History - Physician Review Nursing Documentation Reviewed: Yes Family/Social History: Unknown Family HX Smoking Status: Never Smoked Hx Alcohol Use: No Hx Substance Use: No Hx Substance Use Treatment: No Allergies/Home Meds Allergies/Adverse Reactions: Allergies Penicillins Allergy (Verified 11/24/18 14:13) RASH Home Medications: Home Meds Medication Instructions Recorded Confirmed Enalapril Maleate [Vasotec] 10 mg PO DAILY 06/29/17 11/24/18 Glipizide [Glipizide ER] 2.5 mg PO DAILY 06/29/17 11/24/18 hydroCHLOROthiazide [Hydrodiuril] 25 mg PO DAILY 06/29/17 11/24/18 Review of Systems - Physician Review All systems were reviewed & negative as marked: Yes Physical Exam Vital Signs Temp Pulse Resp BP Pulse Ox 11/24/18 14:08 98.5 F 95 H 18 99/68 L 98 Temperature: Afebrile Blood Pressure: Normal Pulse: Regular Respiratory Rate: Normal Appearance: Positive for: Well-Appearing, Non-Toxic, Comfortable Pain Distress: None Mental Status: Positive for: Alert and Oriented X 3 - Systems Exam Skin: Present: Warm, Dry, Normal Color, Other (Mild wound dehiscence of right Port-A-Cath. No erythema. No warmth. No discharge.). No: Rashes Medical Decision Making ED Course and Treatment: 11/24/18 14:28 Sterile dressing applied. Follow-up with surgeon. Keep wound clean and dry. Follow up in ER as needed. Disposition/Present on Arrival - Present on Arrival Any Indicators Present on Arrival: No History of DVT/PE: No History of Uncontrolled Diabetes: No Urinary Catheter: No History of Decub. Ulcer: No History Surgical Site Infection Following: None - Disposition Have Diagnosis and Disposition been Completed?: Yes Diagnosis: Wound dehiscence, Wound dehiscence, external operation Disposition: HOME/ ROUTINE Disposition Time: 14:29 Patient Plan: Discharge Condition: GOOD Discharge Instructions (ExitCare): Wound Dehiscence (DC)
[2018-11-24] MEDS ORDERED: Bacitracin 500 Units/gm Oint Foilpak UD ONE (15:19)
== END 2018-11-24 15:29 | disposition home or self-care (01) ==
LOC: ED 14:01
DX: T81.31XA Disruption of external operation (surgical) wound, not elsewhere classified, initial encounter (principal); Y83.8 Other surgical procedures as the cause of abnormal reaction of the patient, or of later complication, without mention of misadventure at the time of the procedure; Y92.89 Other specified places as the place of occurrence of the external cause

== ENCOUNTER 2018-12-17 06:02 | Emergency (ER) | payer MEDICARE ==
[2018-12-17 06:11] VITALS: BMI 32.5
--- NOTE | 2018-12-17 06:16 | ED PDOC ---
Arrival/HPI - General Time Seen by Provider: 12/17/18 06:12 Historian: Patient - History of Present Illness Narrative History of Present Illness (Text): 12/17/18 06:13 Dayanna Chris is an 78 year old female, whose past medical history includes hypertension, cancer, and diabetes, who presents to the Emergency department complaining of vomiting and diarrhea. Patient states she has been experiencing nausea with 2-3 episodes of vomiting, diarrhea, and diffuse abdominal discomfort for the past 3 days. Patient notes she ate eggs prior to onset of symptoms. Patient denies any fever, chills, chest pain, shortness of breath, urinary symptoms, back pain, neck pain, headache, dizziness, or any other complaints. PMD: Dr. Weller Time/Duration: < week Symptom Onset: Gradual Symptom Course: Unchanged Activities at Onset: Light Context: Home Past Medical History - Provider Review Nursing Documentation Reviewed: Yes - Cardiac Hx Hypertension: Yes Hx Pacemaker: No - Neurological Hx Paralysis: No - Endocrine/Metabolic Hx Endocrine Disorders: Yes Hx Diabetes Mellitus Type 2: Yes - Hematological/Oncological Hx Blood Transfusion Reaction: No - Musculoskeletal/Rheumatological Hx Musculoskeletal Disorders: Yes - Psychiatric Hx Emotional Abuse: No Hx Physical Abuse: No Hx Substance Use: No - Surgical History Other/Comment: port-a-cath insertion, - Anesthesia Hx Anesthesia Reactions: No - Suicidal Assessment Feels Threatened In Home Enviroment: No Family/Social History - Physician Review Nursing Documentation Reviewed: Yes Family/Social History: Unknown Family HX Smoking Status: Never Smoked Hx Alcohol Use: No Hx Substance Use: No Hx Substance Use Treatment: No Allergies/Home Meds Allergies/Adverse Reactions: Allergies Penicillins Allergy (Verified 11/24/18 14:13) RASH Home Medications: Home Meds Medication Instructions Recorded Confirmed Enalapril Maleate [Vasotec] 10 mg PO DAILY 06/29/17 11/24/18 Glipizide [Glipizide ER] 2.5 mg PO DAILY 06/29/17 11/24/18 hydroCHLOROthiazide [Hydrodiuril] 25 mg PO DAILY 06/29/17 11/24/18 Review of Systems - Physician Review All systems were reviewed & negative as marked: Yes - Review of Systems Constitutional: Normal. absent: Fevers Eyes: Normal ENT: Normal Respiratory: Normal. absent: SOB, Cough Cardiovascular: Normal. absent: Chest Pain Gastrointestinal: Abdominal Pain, Diarrhea, Nausea, Vomiting Genitourinary Female: Normal. absent: Dysuria, Frequency, Hematuria, Urine Output Changes Musculoskeletal: Normal. absent: Back Pain, Neck Pain Skin: Normal. absent: Rash Neurological: Normal. absent: Headache, Dizziness Endocrine: Normal Hemo/Lymphatic: Normal Psychiatric: Normal Physical Exam Vital Signs Reviewed: Yes Temperature: Afebrile Blood Pressure: Normal Pulse: Regular Respiratory Rate: Normal Appearance: Positive for: Well-Appearing, Non-Toxic, Comfortable Pain Distress: None Mental Status: Positive for: Alert and Oriented X 3 - Systems Exam Head: Present: Atraumatic, Normocephalic Pupils: Present: PERRL Extroacular Muscles: Present: EOMI Conjunctiva: Present: Normal Mouth: Present: Moist Mucous Membranes Neck: Present: Normal Range of Motion Respiratory/Chest: Present: Clear to Auscultation, Good Air Exchange. No: Respiratory Distress, Accessory Muscle Use Cardiovascular: Present: Regular Rate and Rhythm, Normal S1, S2. No: Murmurs Abdomen: Present: Tenderness (mid/lower abdomen), Normal Bowel Sounds. No: Distention, Peritoneal Signs, Guarding Back: Present: Normal Inspection Upper Extremity: Present: Normal Inspection. No: Cyanosis, Edema Lower Extremity: Present: Normal Inspection. No: Edema Neurological: Present: GCS=15, CN II-XII Intact, Speech Normal Skin: Present: Warm, Dry, Normal Color. No: Rashes Psychiatric: Present: Alert, Oriented x 3, Normal Insight, Normal Concentration Medical Decision Making ED Course and Treatment: 12/17/18 06:13 Impression: 78 year old female complaining of nausea, vomiting, diarrhea, and diffuse abdominal discomfort. Plan: -- Labs -- Urinalysis -- IV fluids -- Zofran -- Reassess and disposition Prior Visits: Notes and results from previous visits were reviewed. Progress Notes: 12/17/18 07:00 Case endorsed to /pending/labs /CT Abdomen/Pelvis/reassess/final disposition - Scribe Statement The provider has reviewed the documentation as recorded by the Scriberika Gould Provider Scribe Attestation: All medical record entries made by the Scribe were at my direction and personally dictated by me. I have reviewed the chart and agree that the record accurately reflects my personal performance of the history, physical exam, medical decision making, and the department course for this patient. I have also personally directed, reviewed, and agree with the discharge instructions and disposition. Disposition/Present on Arrival - Present on Arrival Any Indicators Present on Arrival: No History of DVT/PE: No History of Uncontrolled Diabetes: No Urinary Catheter: No History Surgical Site Infection Following: None - Disposition Have Diagnosis and Disposition been Completed?: No Diagnosis: Abdominal pain, Vomiting, Diarrhea Disposition Time: 07:00 Patient Problems: Current Active Problems Problem Status Onset Abdominal pain Acute Diarrhea Acute Vomiting Acute Condition: STABLE Referrals: Nesha Weller MD [Primary Care Provider] - Follow up with primary
[2018-12-17 06:30] VITALS: RESP 18; TEMP 97.7
[2018-12-17] MEDS ORDERED: Sodium Chloride 0.9% 1,000 ML IV STA (06:40)
[2018-12-17 07:44] LABS: HEMOGLOBIN 11.3 g/dL (12.0-16.0); MEAN CORPUSCULAR HGB CONC 32.6 g/dl (31.0-37.0); MEAN PLATELET VOLUME 9.1 fl (7.0-11.0); RBC 3.9 10^6/uL (3.5-6.1); RED CELL DISTRIBUTION WIDTH 13.3 % (11.5-14.5); WHITE BLOOD COUNT 5.3 10^3/uL (4.5-11.0)
[2018-12-17 07:52] LABS: ALB/GLOB RATIO 1.1 (1.1-1.8); ALBUMIN 4.3 g/dL (3.0-4.8); ALT/SGPT 29 U/L (7-56); AST/SGOT 41 U/L (14-36); BLOOD UREA NITROGEN 31 mg/dL (7-21); CALCIUM 9.6 mg/dL (8.4-10.5); GFR NON-AFRICAN AMERICAN 53; LIPASE 69 U/L (23-300)
--- NOTE | 2018-12-17 09:15 | CT ---
Date of service: 12/17/2018 PROCEDURE: CT Abdomen and Pelvis with contrast HISTORY: abdominal pain COMPARISON: None. TECHNIQUE: Contrast dose: Radiation dose: Total exam DLP = 951.51 mGy-cm. This CT exam was performed using one or more of the following dose reduction techniques: Automated exposure control, adjustment of the mA and/or kV according to patient size, and/or use of iterative reconstruction technique. FINDINGS: LOWER THORAX: Unremarkable. LIVER: Unremarkable. No gross lesion or ductal dilatation. GALLBLADDER AND BILE DUCTS: Status post cholecystectomy. PANCREAS: Unremarkable. No gross lesion or ductal dilatation. SPLEEN: Unremarkable. ADRENALS: Stable 1.9 centimeter left adrenal mass. KIDNEYS AND URETERS: Unremarkable. No hydronephrosis. No solid mass. VASCULATURE: Unremarkable. No aortic aneurysm. No aortic atherosclerotic calcification or mural plaque present. BOWEL: Unremarkable. No obstruction. No gross mural thickening. APPENDIX: Normal appendix. PERITONEUM: Increase in size of the loculated fluid in the deep pelvis measuring 4.7 by 2.4 centimeters. LYMPH NODES: Unremarkable. No enlarged lymph nodes. BLADDER: Unremarkable. REPRODUCTIVE: Unremarkable. BONES: No acute fracture. OTHER FINDINGS: None. IMPRESSION: Stable 1.9 centimeter left adrenal mass. Increase in size of the loculated fluid in the deep pelvis measuring 4.7 by 2.4 centimeters.
[2018-12-17 09:31] VITALS: BP 105/54; PULSE 75; O2SAT 98
--- NOTE | 2018-12-17 09:34 | ED PDOC ---
Physical Exam Vital Signs Temp Pulse Resp BP Pulse Ox 12/17/18 06:29 97.7 F 84 18 108/61 99 Medical Decision Making ED Course and Treatment: Signed out to me at change of shift pending CT and labs. Labs unremarkable. Patient in no distress. FINDINGS: LOWER THORAX: Unremarkable. LIVER: Unremarkable. No gross lesion or ductal dilatation. GALLBLADDER AND BILE DUCTS: Status post cholecystectomy. PANCREAS: Unremarkable. No gross lesion or ductal dilatation. SPLEEN: Unremarkable. ADRENALS: Stable 1.9 centimeter left adrenal mass. KIDNEYS AND URETERS: Unremarkable. No hydronephrosis. No solid mass. VASCULATURE: Unremarkable. No aortic aneurysm. No aortic atherosclerotic calcification or mural plaque present. BOWEL: Unremarkable. No obstruction. No gross mural thickening. APPENDIX: Normal appendix. PERITONEUM: Increase in size of the loculated fluid in the deep pelvis measuring 4.7 by 2.4 centimeters. LYMPH NODES: Unremarkable. No enlarged lymph nodes. BLADDER: Unremarkable. REPRODUCTIVE: Unremarkable. BONES: No acute fracture. OTHER FINDINGS: None. IMPRESSION: Stable 1.9 centimeter left adrenal mass. Increase in size of the loculated fluid in the deep pelvis measuring 4.7 by 2.4 centimeters. Patient knows about fluid in pelvis. Discharged home, continue PO fluids, f/u PMD, instructed to return to ED for worsening pain, vomiting, dyspnea, or any other problem. - Lab Interpretations Lab Results: Total Bilirubin 1.0 mg/dL (0.2-1.3) 12/17/18 07:20 AST 41 U/L (14-36) H 12/17/18 07:20 ALT 29 U/L (7-56) 12/17/18 07:20 Alkaline Phosphatase 76 U/L (38-126) 12/17/18 07:20 Total Protein 8.2 g/dL (5.8-8.3) 12/17/18 07:20 Albumin 4.3 g/dL (3.0-4.8) 12/17/18 07:20 Globulin 3.9 gm/dL 12/17/18 07:20 Albumin/Globulin Ratio 1.1 (1.1-1.8) 12/17/18 07:20 Lipase 69 U/L (23-300) 12/17/18 07:20 - RAD Interpretation Radiology Orders: 12/17/18 06:37 CHEST PORTABLE [RAD] Stat 12/17/18 06:45 ABD & PELVIS IV CONTRAST ONLY [CT] Stat - Medication Orders Current Medication Orders: Discontinued Medications Famotidine (Pepcid) 20 mg IVP STAT STA Stop: 12/17/18 06:41 Last Admin: 12/17/18 07:39 Dose: 20 mg IVP Administration Document 12/17/18 07:39 SRE (Rec: 12/17/18 07:39 SRE [id number]) Charges for Administration # of IVP Administrations 1 Sodium Chloride (Sodium Chloride 0.9%) 1,000 mls @ 999 mls/hr IV .Q1H1M STA Stop: 12/17/18 07:40 Last Admin: 12/17/18 07:39 Dose: 999 mls/hr eMAR Start Stop Document 12/17/18 07:39 SRE (Rec: 12/17/18 07:39 SRE [id number]) Intravenous Solution Start Date 12/17/18 Start Time 07:39 End Date 12/17/18 End time 08:40 Total Infusion Time 61 Ondansetron HCl (Zofran Inj) 4 mg IVP ONCE ONE Stop: 12/17/18 06:41 Last Admin: 12/17/18 07:38 Dose: 4 mg IVP Administration Document 12/17/18 07:38 SRE (Rec: 12/17/18 07:39 SRE [id number]) Charges for Administration # of IVP Administrations 1 Disposition/Present on Arrival - Present on Arrival Any Indicators Present on Arrival: No History of DVT/PE: No History of Uncontrolled Diabetes: No Urinary Catheter: No History of Decub. Ulcer: No History Surgical Site Infection Following: None - Disposition Have Diagnosis and Disposition been Completed?: Yes Diagnosis: Abdominal pain, Vomiting, Diarrhea Disposition: HOME/ ROUTINE Disposition Time: 09:32 Patient Plan: Discharge Patient Problems: Current Active Problems Problem Status Onset Abdominal pain Acute Diarrhea Acute Vomiting Acute Condition: STABLE Discharge Instructions (ExitCare): Viral Gastroenteritis Prescriptions: Ondansetron ODT [Zofran ODT] 4 mg PO Q8 #12 odt Referrals: Nesha Weller MD [Primary Care Provider] - Follow up with primary
--- NOTE | 2018-12-17 10:57 | CARD ---
APPROVED REPORT Date of service: 12/17/2018 EKG Measurement Heart [id number] VT 144P [id number] <Conclusion> Normal sinus rhythm Low voltage QRS Nonspecific T wave abnormality Abnormal ECG
--- NOTE | 2018-12-17 14:38 | RAD ---
Date of service: 12/17/2018 HISTORY: Abdominal pain. COMPARISON: 11/25/2015 FINDINGS: LUNGS: No active pulmonary disease. PLEURA: No significant pleural effusion identified, no pneumothorax apparent. CARDIOVASCULAR: Atherosclerotic calcifications identified primarily aortic arch. Tortuous and aneurysmal thoracic aorta. Venous access catheter in satisfactory position. No radiographic findings to suggest acute or significant cardiovascular disease. OSSEOUS STRUCTURES: No significant abnormalities. VISUALIZED UPPER ABDOMEN: Normal. OTHER FINDINGS: None. IMPRESSION: No active disease. No significant interval change compared to the prior examination(s).
== END 2018-12-17 10:30 | disposition home or self-care (01) ==
LOC: ED 06:02
DX: R11.2 Nausea with vomiting, unspecified (principal); R19.7 Diarrhea, unspecified; R10.9 Unspecified abdominal pain; E11.9 Type 2 diabetes mellitus without complications; I10 Essential (primary) hypertension
CPT/HCPCS: 71045; 74177; 80053; 83690; 85027; 93005; 96361; 96374; 96375; 99283; J2405; J7030; Q9967

== ENCOUNTER 2019-02-23 11:23 | Observation (INO) | payer MEDICARE ==
[2019-02-23 11:27] VITALS: BMI 32.6
--- NOTE | 2019-02-23 11:53 | ED PDOC ---
Arrival/HPI - General Chief Complaint: Dizziness/Lightheaded Time Seen by Provider: 02/23/19 11:24 - History of Present Illness Narrative History of Present Illness (Text): 02/23/19 11:53 A 79 year old female, whose past medical history includes colon CA, hypertension, and diabetes, presents to the emergency department complaining of dizziness since yesterday. Patient cannot describe dizziness. Patient notes also experiencing mild cough, however denies any pain, fever, or any other complaints at this time. Past Medical History - Provider Review Nursing Documentation Reviewed: Yes - Infectious Disease Hx of Infectious Diseases: None - Reproductive Menopause: Yes - Cardiac Hx Hypertension: Yes - Neurological Hx Paralysis: No - HEENT Hx HEENT Disorder: Yes Other/Comment: GLASSES - Endocrine/Metabolic Hx Endocrine Disorders: Yes Hx Diabetes Mellitus Type 2: Yes - Hematological/Oncological Hx Blood Disorders: Yes Hx Cancer: Yes (colon 2017) - Integumentary Hx Dermatological Disorder: Yes Other/Comment: RIGHT FOOT 4TH TOE CALLUS - Musculoskeletal/Rheumatological Hx Musculoskeletal Disorders: Yes - Gastrointestinal Hx Gastrointestinal Disorders: Yes - Psychiatric Hx Substance Use: No - Surgical History Other/Comment: port-a-cath insertion, . ectopic - Anesthesia Hx Anesthesia Reactions: No Hx Malignant Hyperthermia: No - Suicidal Assessment Feels Threatened In Home Enviroment: No Family/Social History - Physician Review Nursing Documentation Reviewed: Yes Family/Social History: No Known Family HX Smoking Status: Never Smoked Hx Alcohol Use: No Hx Substance Use: No Hx Substance Use Treatment: No Allergies/Home Meds Allergies/Adverse Reactions: Allergies Penicillins Allergy (Verified 11/24/18 14:13) RASH Home Medications: Home Meds Medication Instructions Recorded Confirmed Enalapril Maleate [Vasotec] 10 mg PO DAILY 06/29/17 02/23/19 Glipizide [Glipizide ER] 2.5 mg PO DAILY 06/29/17 02/23/19 hydroCHLOROthiazide [Hydrodiuril] 25 mg PO DAILY 06/29/17 02/23/19 Review of Systems - Physician Review All systems were reviewed & negative as marked: Yes - Review of Systems Constitutional: absent: Fevers Respiratory: Cough (mild) Musculoskeletal: absent: Back Pain, Neck Pain Neurological: Dizziness Physical Exam Vital Signs Reviewed: Yes Vital Signs Temp Pulse Resp BP Pulse Ox 02/23/19 11:24 98.7 F 89 20 133/78 87 L Temperature: Afebrile Blood Pressure: Normal Pulse: Regular Respiratory Rate: Normal Appearance: Positive for: Well-Appearing, Non-Toxic, Comfortable Pain Distress: None Mental Status: Positive for: Alert and Oriented X 3 Finger Stick Blood Glucose: 163 - Systems Exam Head: Present: Atraumatic, Normocephalic Pupils: Present: PERRL Extroacular Muscles: Present: EOMI Conjunctiva: Present: Normal Mouth: Present: Moist Mucous Membranes Neck: Present: Normal Range of Motion Respiratory/Chest: Present: Clear to Auscultation, Good Air Exchange. No: Respiratory Distress, Accessory Muscle Use Cardiovascular: Present: Regular Rate and Rhythm, Normal S1, S2. No: Murmurs Abdomen: No: Tenderness, Distention, Peritoneal Signs Back: Present: Normal Inspection Upper Extremity: Present: Normal Inspection. No: Cyanosis, Edema Lower Extremity: Present: Normal Inspection. No: Edema Neurological: Present: GCS=15, CN II-XII Intact, Speech Normal Skin: Present: Warm, Dry, Normal Color. No: Rashes Psychiatric: Present: Alert, Oriented x 3, Normal Insight, Normal Concentration Medical Decision Making ED Course and Treatment: 02/23/19 11:53 Impression: 79 year old female with dizziness and mild cough. No acute findings on physical exam. ro metaoblic cardiac anemia etiology- labs imaging pending Plan: -- EKG -- Chest X-ray -- Labs -- Urinalysis -- Reassess and disposition Progress Notes: EKG: Ordered, reviewed, and independently interpreted the EKG. Rate : 87 BPM Rhythm : NSR Interpretation : No ST-segment elevations or depressions, no T-wave inversions, normal intervals. Comparison : No previous EKG for comparison. 02/23/19 12:39 noted anemia, previous 11.3. pt reports recent transfusion uncertain of baseline. ?etiology of symptoms. case discussed with dr sommers. will transfuse 1 u. brown stool guiac neg. will obs for dizziness, near syncope, anemia. no jean neuro intact. pt eating in nad. 02/23/2019 12:45 Chest X-ray IMPRESSION: Right IJ approach central venous catheter extends the cavoatrial junction. Cardiomegaly. Ectatic aorrta containing ahterosclerotic calcifications. Dictator: Craly Sands MD 02/23/19 14:10 - Lab Interpretations I have reviewed the lab results: Yes - RAD Interpretation Radiology Orders: 02/23/19 11:43 CHEST PORTABLE [RAD] Stat - Scribe Statement The provider has reviewed the documentation as recorded by the Mallory Schmidt Provider Scribe Attestation: All medical record entries made by the Scribe were at my direction and personally dictated by me. I have reviewed the chart and agree that the record accurately reflects my personal performance of the history, physical exam, medical decision making, and the department course for this patient. I have also personally directed, reviewed, and agree with the discharge instructions and disposition. Disposition/Present on Arrival - Present on Arrival Any Indicators Present on Arrival: No History of DVT/PE: No History of Uncontrolled Diabetes: No Urinary Catheter: No History of Decub. Ulcer: No History Surgical Site Infection Following: None - Disposition Have Diagnosis and Disposition been Completed?: Yes Diagnosis: Dizziness, Anemia Disposition: HOSPITALIZED Disposition Time: 14:00 Patient Problems: Current Active Problems Problem Status Onset Anemia Acute Dizziness Acute Condition: STABLE
[2019-02-23 12:15] LABS: BASO # 0.01 K/mm3 (0.0-2.0); BASO % 0.3 % (0.0-3.0); EOS # 0.1 (0.0-0.7); HEMOGLOBIN 9.5 g/dL (12.0-16.0); LYMPH # 1.8 (1.2-3.4); LYMPH % 46.5 % (22.0-35.0); MEAN CELL VOLUME 96.8 fl (80.0-105.0); MEAN CORPUSCULAR HEMOGLOBIN 30.6 pg (25.0-35.0); MEAN CORPUSCULAR HGB CONC 31.7 g/dl (31.0-37.0); MEAN PLATELET VOLUME 8.8 fl (7.0-11.0); MONO # 0.4 (0.1-0.6); MONO % 11.3 % (1.0-6.0); RBC 3.1 10^6/uL (3.5-6.1); RED CELL DISTRIBUTION WIDTH 17.8 % (11.5-14.5); WHITE BLOOD COUNT 3.9 10^3/uL (4.5-11.0)
[2019-02-23 12:25] LABS: ALBUMIN 3.5 g/dL (3.0-4.8); ALT/SGPT 12 U/L (7-56); AST/SGOT 20 U/L (14-36); BLOOD UREA NITROGEN 15 mg/dL (7-21); CALCIUM 9.2 mg/dL (8.4-10.5); GFR NON-AFRICAN AMERICAN > 60; INR 1.16; PROTHROMBIN TIME 13.1 SECONDS (9.4-12.5)
[2019-02-23 12:34] LABS: TROPONIN I < 0.01 ng/mL
--- NOTE | 2019-02-23 12:52 | RAD ---
HISTORY: gen weakness COMPARISON: Chest x-ray performed 12/17/18 TECHNIQUE: Chest, one view. FINDINGS: Examination limited by habitus. Right IJ approach central venous catheter extends the cavoatrial junction. LUNGS: No focal consolidation. Please note that chest x-ray has limited sensitivity for the detection of pulmonary masses. PLEURA: No significant pleural effusion identified. No definite pneumothorax . CARDIOVASCULAR: Cardiomegaly. Ectatic aorta containing atherosclerotic calcifications. OSSEOUS STRUCTURES: Degenerative changes. VISUALIZED UPPER ABDOMEN: Unremarkable. OTHER FINDINGS: None. IMPRESSION: Right IJ approach central venous catheter extends the cavoatrial junction. Cardiomegaly. Ectatic aorta containing atherosclerotic calcifications.
--- NOTE | 2019-02-23 20:32 | CARD ---
APPROVED REPORT Date of service: 02/23/2019 EKG Measurement Heart [id number] <Conclusion> Normal sinus rhythm Minimal voltage criteria for LVH, may be normal variant Borderline ECG
[2019-02-24 10:06] LABS: BASO # 0.01 K/mm3 (0.0-2.0); BASO % 0.2 % (0.0-3.0); EOS # 0.1 (0.0-0.7); EOS % 1.3 % (1.5-5.0); HEMOGLOBIN 10.1 g/dL (12.0-16.0); LYMPH % 44.4 % (22.0-35.0); MEAN CELL VOLUME 94.8 fl (80.0-105.0); MEAN CORPUSCULAR HEMOGLOBIN 30.7 pg (25.0-35.0); MEAN CORPUSCULAR HGB CONC 32.4 g/dl (31.0-37.0); MEAN PLATELET VOLUME 8.7 fl (7.0-11.0); MONO # 0.4 (0.1-0.6); MONO % 8.2 % (1.0-6.0); RBC 3.29 10^6/uL (3.5-6.1); WHITE BLOOD COUNT 4.5 10^3/uL (4.5-11.0)
[2019-02-24] MEDS ORDERED: Magnesium Sulfate 2 gm/50 ml 2 GM/50 ML BAG IVPB ONE (10:38)
[2019-02-24] MEDS ORDERED: Potassium Chloride 20 mEq ER Tab PO ONE (10:38)
[2019-02-24 11:57] LABS: IRON 58 ug/dL (45-180)
[2019-02-24 12:07] LABS: % IRON SATURATION 24 % (20-55); TOTAL IRON BINDING CAPACITY 237 ug/dL (265-497)
--- NOTE | 2019-02-24 12:52 | CT ---
Date of service: 02/24/2019 PROCEDURE: CT HEAD WITHOUT CONTRAST. HISTORY: dizziness COMPARISON: 06/28/2015 TECHNIQUE: Axial computed tomography images were obtained through the head/brain without intravenous contrast. Radiation dose: Total exam DLP = 840.36 mGy-cm. This CT exam was performed using one or more of the following dose reduction techniques: Automated exposure control, adjustment of the mA and/or kV according to patient size, and/or use of iterative reconstruction technique. FINDINGS: HEMORRHAGE: No intracranial hemorrhage. BRAIN: No mass effect or edema. There is a chronic lacunar infarct in the right thalamus and posterior limb of the internal capsule. There are no acute findings VENTRICLES: Unremarkable. No hydrocephalus. CALVARIUM: Unremarkable. PARANASAL SINUSES: Unremarkable as visualized. No significant inflammatory changes. MASTOID AIR CELLS: Unremarkable as visualized. No inflammatory changes. OTHER FINDINGS: The report concurs with the preliminary [facility] report IMPRESSION: No acute intracranial findings
--- NOTE | 2019-02-24 14:19 | PN ---
DATE: 02/24/2019 SUBJECTIVE: This 79-year-old female was examined on the cardiac josé of the [facility] on the morning of 02/24/2019. Her case was reviewed in detail with nurse Clemencia Flor, registered nurse. The patient remains in a normal sinus rhythm on the rn cardiac cath. Today, she denies dizziness. She did complete a blood transfusion last evening without incident and there were no complaints of chest pain, fever, chills or palpitation. PHYSICAL EXAMINATION: VITAL SIGNS: surveillance monitor shows normal sinus rhythm. Temperature 98.6, respirations 19, pulse 64 and blood pressure 124/81, pulse ox 98% room air. HEENT: Head: Normocephalic, atraumatic. Eyes: No icterus. Ears: Clear. Throat: Noninjected. NECK: Supple. HEART: S1, S2. LUNGS: Clear. ABDOMEN: Soft. EXTREMITIES: No edema. SKIN: Without rash. NEUROLOGICAL: Intact. PSYCHOLOGICAL: Alert. VASCULAR: Legs warm to touch. LABORATORY DATA: Potassium 3.5, sugar 132, magnesium 1.3. White count 4500, hemoglobin 10.1, hematocrit 31.2, platelets 155,000. 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 PLAN: Plan at present is to obtain a CT of head. She will also have vitamin B12, ferritin, folic acid levels, iron, TIBC and repeat hemoglobin and hematocrit, potassium and magnesium levels in a.m. She will continue on Glucotrol 2.5 mg p.o. daily, hydrochlorothiazide 25 mg p.o. daily, K-Dur 20 mEq p.o. x1 dose, magnesium sulfate 2 g IV piggyback x1 dose and Zestril 5 mg p.o. daily. She is ordered to have a heart healthy diet. She will have a physical therapy evaluation for ambulation safety and based on clinical results, additional diagnostic workup and testing will be entertained. Nesha Weller MD JOLENE
--- NOTE | 2019-02-24 14:24 | CP.PCM.APN ---
Subjective - Date & Time of Evaluation Date of Evaluation: 02/24/19 Time of Evaluation: 11:30 - Subjective Subjective: pt seen and examined at bedside, pt reports felling ok and being able to walk to the bathroom by herself with no dizziness. pt with cane at bedside Review of Systems - Review of Systems All systems: reviewed and no additional remarkable complaints except - Constitutional Constitutional: As Per HPI - Cardiovascular Cardiovascular: absent: As Per HPI, Acrocyanosis, Chest Pain, Chest Pain at Rest, Chest Pain with Activity, Claudication, Diaphoresis, Dyspnea, Dyspnea on Exertion, Edema, Irregular Heart Rhythm, Pain Radiating to Arm/Neck/Jaw, Leg Edema, Leg Ulcers, Lightheadedness, Orthopnea, Palpitations, Paroxysmal Nocturnal Dyspnea, Pedal Edema, Radiating Pain, Rapid Heart Rate, Slow Heart Rate, Syncope, Other - Respiratory Respiratory: absent: As Per HPI, Cough, Dyspnea, Hemoptysis, Dyspnea on Exertion, Wheezing, Snoring, Stridor, Pain on Inspiration, Chest Congestion, Excessive Mucous Production, Change in Mucous Color, Pain with Coughing, Other Objective - Vital Signs/Intake and Output Vital Signs (last 24 hours): Temp Pulse Resp BP Pulse Ox 98.1 F 64 18 123/71 98 02/24/19 12:00 02/24/19 12:00 02/24/19 12:00 02/24/19 12:00 02/24/19 06:00 Intake and Output: 02/24/19 02/24/19 06:59 18:59 Intake Total 480 Output Total 3 Balance 477 - Medications Medications: Current Medications Glipizide (Glucotrol) 2.5 mg PO ACB [facility] Last Admin: 02/24/19 09:38 Dose: 2.5 mg Hydrochlorothiazide (Hydrodiuril) 25 mg PO DAILY [facility] Last Admin: 02/24/19 09:38 Dose: 25 mg Lisinopril (Zestril) 5 mg PO DAILY [facility] - Labs Labs: 02/24/19 09:40 02/23/19 11:50 PT 13.1 SECONDS (9.4-12.5) H 02/23/19 11:50 INR 1.16 02/23/19 11:50 APTT 33.0 Seconds (26.9-38.3) 02/23/19 11:50 - Constitutional Appears: No Acute Distress - Eye Exam Pupil Exam: PERRL - ENT Exam ENT Exam: Normal Exam - Neck Exam Neck Exam: Normal Inspection - Cardiovascular Exam Cardiovascular Exam: +S1, +S2 Additional comments: port noted to chest-wall - GI/Abdominal Exam GI & Abdominal Exam: Soft, Normal Bowel Sounds - Extremities Exam Additional comments: moves all ext - Neurological Exam Neurological Exam: Alert, Awake - Psychiatric Exam Psychiatric exam: Normal Mood Assessment and Plan - Assessment and Plan (Free Text) Plan: ITS Impressions Chest X-Ray 02/23/19 11:43 IMPRESSION: Right IJ approach central venous catheter extends the cavoatrial junction. Cardiomegaly. Ectatic aorta containing atherosclerotic calcifications. Head CT 02/24/19 11:33 IMPRESSION: No acute intracranial findings 79 yr old AA female with pmh sig for colon ca, htn, dm admitted with near syncope now undergoing further assessment. I ordered physical therapy eval to assess gait function and orthostatic vs , pt with anemia workup in progress and s/p 1 unit prbc with h/h stabl at 09/18 pt with negative head c.t will monitor h/h and fpr signs pf bleeding, will add PPI to regimen will follow BPCI/TIC - BPCIA/TIC Educated pt/family on BPCIA/CIR/Med to Bed Programs: N/A Flyers given, including [facility] Beneficiary letter: N/A Pt/family verbalized understanding & agreed to program: N/A
[2019-02-24 21:04] LABS: FOLATE 4.4 ng/mL
--- NOTE | 2019-02-24 22:23 | HP ---
DATE OF EVALUATION: 02/23/2019 HISTORY OF PRESENT ILLNESS: This 79-year-old female who presented to [facility] ER complaining of dizziness. She was on a bus trip to a casino in [place] with her hoahaoism group 02/22/2019. While sitting in the casino, she became dizzy, was escorted back to the bus, felt slightly better, got home, but then felt further dizziness during the evening of 02/22/2019. She presented to [facility] ER on Sunday02/23/2019 and was noted to have acute on chronic anemia. Past medical history is significant for metastatic ovarian cancer to her peritoneum for which she is receiving outpatient chemotherapy under the direction of Dr. Eusebio Loja from Oncology. According to the patient, she has completed her chemotherapy and will be scheduled for an outpatient CAT scan under his direction within the next month. PAST MEDICAL HISTORY: Significant for hypertension, type 2 diabetes mellitus, obesity, degenerative arthritis, and bilateral knee replacements. ALLERGIES: THE PATIENT HAS ALLERGY TO PENICILLIN. OUTPATIENT MEDICATIONS: Include enalapril, glipizide, and HydroDIURIL. SOCIAL HISTORY: She is a nondrinker, nonsmoker, and non IV drug misuser. FAMILY HISTORY: Noncontributory. REVIEW OF SYSTEMS: CONSTITUTIONAL REVIEW: She denied fever or chills. HEAD: No headache or seizure. EYES: No change in visual acuity. EARS: No hearing loss. THROAT: No swallowing difficulty. NECK: No stiffness. CARDIAC REVIEW: No chest pain or palpitation. PULMONARY: No cough. No hemoptysis. GASTROINTESTINAL: No hematemesis. No melena. GENITOURINARY: No dysuria. SKIN: No rash. VASCULAR: No claudication. PSYCHOLOGICAL: No depression. NEUROLOGICAL: No stroke. HEMATOLOGICAL: Anemia of chronic disease. PHYSICAL EXAMINATION: VITAL SIGNS: Temperature 98.5, respirations 18, pulse 71, and blood pressure 120/79. network systems integrator showed normal sinus rhythm. HEENT: Head; normocephalic and atraumatic. Eyes; no icterus. Ears; clear. Throat; noninjected. NECK: Supple. HEART: Regular S1 and S2. No pathological rubs, murmurs, or gallops. LUNGS: Clear. ABDOMEN: Soft. EXTREMITIES: No edema. SKIN: Without rash. NEUROLOGICAL: Intact. PSYCHOLOGICAL: Alert. VASCULAR: Legs warm to touch. LABORATORY DATA: White count 3900, hemoglobin 9.5, hematocrit 30, MCV 96.8, and platelets 155,000. PT/INR 1.16 and PTT 33. Sodium 137, K 3.5, chloride 104, bicarb 24, BUN 15, creatinine 0.8, random blood sugar 174, calcium 9.2, magnesium 1.4, and bilirubin 0.5. AST 20, ALT 12, and alk phos 70. Troponin less than 0.01. Chest x-ray was reviewed, it shows central venous catheter via the right internal jugular. Lungs were clear. No infiltrate, no congestive heart failure, no pneumothorax, and no pleural effusion. EKG was reviewed, it showed normal sinus rhythm with nonspecific ST-T wave changes. 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 PLAN: At present is to admit this patient to the cardiac josé. She will be transfused. She will continue outpatient medications in a.m. including HydroDIURIL, glipizide, and Vasotec. Based on her clinical progress, additional diagnostic workup will be entertained. Additional laboratories will be ordered. Greater than 75 minutes was spent in the care management, review of labs orders, and x-rays and discussion of this patient with herself, and ER physician, Wilner Lord DO. All questions were answered. Nesha Weller MD MTDMalka
[2019-02-25 04:30] VITALS: O2SAT 100
[2019-02-25] MEDS: Pantoprazole 40 mg EC Tab PO SCH ×2 (06:03→06:05)
[2019-02-25 07:14] LABS: HEMOGLOBIN 10.4 g/dL (12.0-16.0)
[2019-02-25] MEDS: Magnesium Sulfate 2 gm/50 ml 2 GM/50 ML BAG IVPB SCH ×2 (10:25→12:18)
[2019-02-25 12:30] VITALS: BP 125/69; PULSE 74; RESP 18; TEMP 98.2
--- NOTE | 2019-02-25 22:21 | DS ---
FINAL DIAGNOSES: Acute on chronic anemia, anemia of chronic disease, history of ovarian cancer with peritoneal metastases, chronic hypertension, type 2 diabetes mellitus, obesity, degenerative arthritis, dizziness resolved. DISPOSITION: Home. FOLLOWUP: In my office. Follow up with Dr. Eusebio Loja, Oncology. DISCHARGE DIET: Heart healthy. DISCHARGE MEDICATIONS: Glucotrol 2.5 mg p.o. daily, HydroDIURIL 25 mg p.o. daily, Zestril 5 mg p.o. daily. The patient received 1 unit of packed red blood cells. SUMMARY: This 79-year-old female who was admitted [facility] with acute on chronic anemia in the setting of guaiac-negative stools and anemia workup consistent with anemia of chronic disease, received packed red blood cells transfusion and was cleared for discharge to home by Physical Therapy. At the time of this dictation, the patient is receiving parenteral IV magnesium and will have a followup magnesium level to ensure adequacy. PHYSICAL EXAMINATION VITAL SIGNS: A normal sinus rhythm on research engineer. Temperature 96.8, respirations 12, pulse 68 and blood pressure 117/70. LABORATORY DATA: Hemoglobin is 10.4, hematocrit 32.4, white count 4500, platelets 155,000. PT/INR 1.16, PTT 33, random glucose 134, potassium 4.2 and percent saturation 24% with a ferritin of 220. B12 level of 519 and folic acid of 4.4. ASSESSMENT AND PLAN: The patient is cleared for discharge to home after IV magnesium infusion and will be monitored in my office closely. The patient has been advised for any change in signs and symptoms to present directly to [facility] Emergency Room. It should be noted chest x-ray showed no infiltrate. Head CT showed evidence of an old chronic lacunar infarct in the right thalamus and posterior rear limb of her internal capsule with no acute findings. The patient was seen and cleared by Physical Therapy for discharge. The patient is aware and in agreement with the above. Nesha Weller MD JOLENE
== END 2019-02-25 17:58 | disposition home or self-care (01) ==
LOC: ED 11:23 → ERH 12:46 → 2RSO 14:43
PROVIDERS: ADMIT Internal Medicine; ATTEND Internal Medicine
DX: C56.9 Malignant neoplasm of unspecified ovary (principal); D63.8 Anemia in other chronic diseases classified elsewhere; C78.6 Secondary malignant neoplasm of retroperitoneum and peritoneum; R42 Dizziness and giddiness; E11.9 Type 2 diabetes mellitus without complications; I10 Essential (primary) hypertension; E78.5 Hyperlipidemia, unspecified; Z96.653 Presence of artificial knee joint, bilateral; Z88.0 Allergy status to penicillin
CPT/HCPCS: 36415; 36430; 70450; 71045; 80053; 82550; 82607; 82728; 82746; 82948; 83540; 83550; 83615; 83735; 84132; 84484; 85014; 85018; 85025; 85610; 85730; 86850; 86900; 86920; 93005; 97116; 97161; 99285; G0378; G8978; G8979; P9016

== ENCOUNTER 2019-03-07 08:59 | Outpatient (CLI) | payer MEDICARE | END 2019-03-07 09:00 | disposition home or self-care (01) | LOC: PET-BROA 08:59 ==